=== PATIENT | female | born 1995 | race Caucasian/White ===

== ENCOUNTER 2022-04-02 16:57 | Inpatient (IN) ==
[2022-04-02] MEDS ORDERED: LACTATED RINGER'S 1,000 ML IV PRN (17:10)
[2022-04-02] MEDS ORDERED: OXYTOCIN 30 UNITS/500 ML BAG IV PRN ×2 (17:10→18:56)
--- NOTE | 2022-04-02 17:13 | History & Physical Report ---
Date of Service April 02, 2022 Assessment & Plan (1) Normal labor: Plan: 26yo at 39.6 weeks GA. Active labor. Presents from planned home 1. Fetus: Cat 1 2. Labor: Complete, +2. Strong urge to push. 3. Vitals: Stable 4. GBS negative (2) Meconium in amniotic fluid: History of Present Illness Primary Care Provider: NO PCP 26yo at 39.6 weeks GA. 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 Patient had a planned home but presented due to thick meconium and HR decels. Patient had a couple clinic visits in early prior to transfering care for a planned home . complicated by hypothyroid. OB Labs: Blood Type A Positive 08/27/21 Antibody Screen NEGATIVE 08/27/21 Hemoglobin 11.6 g/dL (12.0-16.0) L 08/27/21 Hematocrit 34.4 % (37-47) L 08/27/21 Mean Corpuscular Volume 90.8 fL (80-100) 08/27/21 Platelet Count 195 K/uL (130-400) 08/27/21 Rubella IgG Antibody Immune (Immune) 08/27/21 Rapid Plasma Reagin Nonreactive (Nonreactive) 08/27/21 Hepatitis B Surface Antigen Neg (Neg) 08/27/21 HIV (1&2) Ab and P24 Ag, 4th Gener Neg (Neg) 08/27/21 OB Optional Labs: Chlamydia trachomatis RNA NOT DETECTED (NOT DETECTED) 08/27/21 Neisseria gonorrhoeae RNA NOT DETECTED (NOT DETECTED) 08/27/21 Thyroid Stimulating Hormone (TSH) 2.160 uIu/ml (0.300-4.500) 08/27/21 Labs Reviewed: declines cf/sma--akh Allergies Allergy/AdvReac Type Severity Reaction Status Date / Time No Known Allergies Allergy Verified 04/02/22 16:58 Home Medications Medication Instructions Recorded Confirmed Type levothyroxine 50 mcg tablet 50 mcg PO DAILY 08/20/21 04/02/22 History prenat.vits,crescencio,gtw-hfex-wevpm 1 tab PO DAILY 08/20/21 04/02/22 History Patient History Medical History (Updated 04/02/22 @ 17:30 by Teja Phillips MD) Varicella vaccination Surgical History (Updated 08/20/21 @ 13:40 by Kathleen Gardner) No history of previous surgery Family History (Updated 08/20/21 @ 13:41 by Kathleen Gardner) Other Adopted Unknown family medical history Social History (Updated 08/20/21 @ 13:29 by Kathleen Gardner) Smoking Status: Never smoker Hx Alcohol Use: No Hx Substance Use: No Preferred Language: Grenadian Communication Ability: Effective Civil Preparedness Coordinator Required: No Beliefs That Will Affect Care: None marital status: marital status details: Demetrio Lange ([phone] Current Living Situation: Spouse Current Living Situation Comment: lives with spouse, no pets current occupational status: employed current occupation: [employer] Other Information That Helps Us Care for You: No Assistive Devices: None Physical Exam Genitourinary: OB Exam Abdomen: + vertex Manual OB Exam: + cervical dilation 10 cm, + cervical effacement 100% and + station + 2 OB Exam Monitor Tracing: + external FHT monitor used, + external uterine monitor used, + category I and + normal FHT variability; no early decelerations present, no late decelerations present and no variable decelerations Coding Level of Care Code None Diagnoses Normal labor O80; Z37.9 Meconium in amniotic fluid P96.83
[2022-04-02 17:38] LABS: Hematocrit (blood only) 38.2 % (37-47); Hemoglobin 12.9 g/dL (12.0-16.0); Mean Corpuscular Hemoglobin 32.3 pg (25-34); Mean Corpuscular Hgb Conc 33.8 g/dL (32-36); Mean Corpuscular Volume 95.5 fL (80-100); Mean Platelet Volume 12.1 fL (7.4-10.4); Platelet Count 175 K/uL (130-400); RDW Coefficient of Variation 13.2 % (11.5-14.5); RDW Standard Deviation 45.9 fL (36.4-46.3); White Blood Count 14.22 K/uL (4.8-10.8)
[2022-04-02] MEDS ORDERED: ERYTHROMYCIN OP OINT 1 GM PKT ONE (18:00)
[2022-04-02] MEDS ORDERED: LIDOCAINE 1% MPF 5 ML VIAL ONE ×2 (18:36→18:40)
[2022-04-02] MEDS ORDERED: BENZOCAINE 20% AER SPR 82.5 GM CAN EXT PRN (18:56)
[2022-04-02] MEDS ORDERED: bisacodyL 10 MG SUPP PR PRN (18:56)
[2022-04-02] MEDS ORDERED: DIPHTHERIA/TETANUS/PERTUSSIS 0.5 ML SYR/VIAL IM ONE (18:56)
[2022-04-02] MEDS ORDERED: HYDROCORTISONE ACETATE 25 MG SUPP PR PRN (18:56)
[2022-04-02] MEDS: IBUPROFEN 600 MG TAB PO PRN ×2 (19:12→23:51)
--- NOTE | 2022-04-02 19:35 | Delivery Summary ---
DATE OF SERVICE: 04/02/2022 PROCEDURE: Normal spontaneous vaginal delivery with bilateral labial laceration repairs. SURGEON: Teja Phillips MD. PREOPERATIVE DIAGNOSES: 1. Single intrauterine at 39 weeks 6 days gestational age. 2. Active labor. 3. Planned home , presented with decels and meconium fluid. 4. Hypothyroidism. POSTOPERATIVE DIAGNOSES: 1. Single intrauterine at 39 weeks 6 days gestational age. 2. Active labor. 3. Planned home , presented with decels and meconium fluid. 4. Hypothyroidism. 5. Status post procedure. ESTIMATED BLOOD LOSS: 300 mL DRAINS: None. FLUIDS: Continuous lactated Ringer. URINE OUTPUT: Per Vu catheter. COMPLICATIONS: None. FINDINGS: Viable male with weight and Apgars pending. INDICATIONS: The patient is a 26-year-old G1, P0 at 39 weeks 6 days gestational age, presented in ac tive labor with planned home delivery. 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 At initi al evaluation, the patient was noted to be completely dilated, 100% effaced, positive 2 station with a strong urge to push. After the patient received an IV and the patient began to push and pushed to achieve delivery. DESCRIPTION OF PROCEDURE: The patient progressed to 10 cm dilated, 100% effaced, positive 2 station, pushed over intact perineum without anesthesia and delivered a viable male with weight and Ap gars as noted above. Head of the delivered in JOSE MANUEL position, restituted to left transverse. No nuchal cord was noted. Body and shoulders quickly followed. was noted to be vigorous arslan n after delivery and delayed cord clamping was initiated. The patient desired prolonged delayed cord clamping and the patient was noted to have minimal bleeding, so it was allowed for the patient to owens ve as long as she needed for delaying the cord clamping. After the patient desired cord clamp, the co rd was then double clamped and cut. remained on maternal abdomen, still noted to be vigorous . Cord blood was attempted to be collected, although minimum was collected due to the prolonged natu re of the cord clamping. The placenta then delivered spontaneously with gentle cord traction and not ed to have 3-vessel cord. On inspection of the perineum, vagina, and cervix, there was noted to be j ust bilateral labial lacerations which were repaired with 3-0 Vicryl in an interrupted stitch. A 10 mL of lidocaine were distributed throughout the lacerations for effect. Needle, sponge, and in strument counts were correct at the completion of the case. Both mother and were stable in t he immediate post-delivery period. Job ID: [id number]
[2022-04-02] MEDS: ACETAMINOPHEN 325 MG TAB PO PRN (20:31)
[2022-04-02] MEDS ORDERED: ONDANSETRON INJ 2 MG/ML 2 ML VIAL IV PRN (21:17)
[2022-04-02] MEDS: DOCUSATE SODIUM 100 MG CAP PO SCH (22:58)
--- NOTE | 2022-04-03 07:30 | Obstetrical Progress Note ---
Date of Service April 03, 2022 Assessment & Plan (1) Encounter for care and examination after delivery: 26yo G1 day 1 s/p doing well. Routine care Subjective Ambulation: ambulating normally Voiding: no voiding problems Passing Gas:: Yes Diet Tolerance:: regular diet Lochia:: Moderate Feeding Type:: breast feeding Physical Exam Gastrointestinal (Abdomen) Inspection/Auscultation: abdomen normal to inspection; abdomen not distended Percussion/Palpation: abdomen soft; abdomen nontender, no guarding and abdomen not rigid Genitourinary OB Exam Abdomen: + fundal height Fundus: + firm and + relation to umbilicus (Below); not tender or not boggy Results & Data ([facility]) Vital Signs (Past 12 Hours) Vital Signs Temp Pulse Pulse Resp BP BP Pulse Ox 04/03/22 00:00 36.6 C 86 16 94/56 L 97 04/02/22 22:00 36.8 C 100 H 16 98/60 L 97 04/02/22 20:48 36.7 C 76 16 97/57 L 04/02/22 20:33 81 92/55 L 04/02/22 20:18 82 16 96/55 L 04/02/22 20:03 70 93/54 L 04/02/22 19:48 75 16 98/55 L 04/02/22 19:33 84 16 106/59 L
[2022-04-03] MEDS: DOCUSATE SODIUM 100 MG CAP PO SCH ×2 (07:46→21:25)
[2022-04-03] MEDS: PRENATAL VITAMIN 1 TAB PO SCH (07:46)
[2022-04-03] MEDS: FERROUS SULFATE 325 MG TAB PO SCH (07:46)
[2022-04-03] MEDS: LEVOTHYROXINE SODIUM 50 MCG TABLET PO SCH (08:04)
[2022-04-03] MEDS: IBUPROFEN 600 MG TAB PO PRN ×3 (08:05→21:25)
[2022-04-03] MEDS: ACETAMINOPHEN 325 MG TAB PO PRN ×2 (12:16→19:27)
[2022-04-03] MEDS ORDERED: bisacodyL 5 MG TABEC PO SCH (20:00)
[2022-04-04] MEDS: ACETAMINOPHEN 325 MG TAB PO PRN ×2 (01:03→08:34)
[2022-04-04] MEDS: IBUPROFEN 600 MG TAB PO PRN ×4 (01:38→17:34)
--- NOTE | 2022-04-04 07:19 | Obstetrical Progress Note ---
Date of Service April 04, 2022 Assessment & Plan (1) Encounter for care and examination after delivery: On day 2 she is doing well ambulating well no extremity pain minimal bleeding meets discharge criteria will discharge home Subjective Ambulation: ambulating normally Voiding: no voiding problems Passing Gas:: Yes Diet Tolerance:: regular diet Lochia:: Small Feeding Type:: breast feeding Results & Data ([facility]) Vital Signs (Past 12 Hours) Vital Signs Temp Pulse Resp BP Pulse Ox 04/04/22 00:36 98.6 F 97 H 16 92/54 L 98
[2022-04-04] MEDS: LEVOTHYROXINE SODIUM 50 MCG TABLET PO SCH (07:54)
[2022-04-04] MEDS: DOCUSATE SODIUM 100 MG CAP PO SCH (08:35)
[2022-04-04] MEDS: FERROUS SULFATE 325 MG TAB PO SCH (08:35)
[2022-04-04] MEDS: PRENATAL VITAMIN 1 TAB PO SCH (08:35)
--- NOTE | 2022-04-04 13:22 | Communication Note ---
Date of Service: April 04, 2022 Patient seen and examined with Erin Cardenas RN. Patient was c/o 7/10 pain in her tailbone and lower back / spine area while sitting to feed this morning. Pain was severe enough to result in shaking and tachycardia. Patient also mentioned chest pressure and SOB, as well as noting a h/o anxiety which has historically felt similar to the current episode. Vitals were noted to include sats of 99-100% on RA, pulse reported by SUZETTE Cardenas to be a max of 127 when sitting upright at max pain this morning - but currently in 80s while resting on her side, which relieves the pain. BP 93/60 which is c/w this patient's typical baseline readings. Exam: R lateral decub position. NAD. Redness of face c/w recent crying. Cor: RRR, holosystolic mild murmur, Lungs CTAB all quadrants. Abd soft nontender, fundus @ u. Pelvic declined by patient who describes normal labial size without swelling or ecchymosis and SUZETTE Cardenas also states that vulvar exam was "looking really good" this morning. She is exquisitely TTP over midline of sacrum, tearful and pulls away with attempt to palpate coccyx at top of gluteal crease. A/P: 1) Likely coccyx fx during delivery. Patient relates that she had "back labor" with her contractions and severe pain in the tailbone area during pushing and , which were very rapid, and this is her first baby so she didn't know what was normal. It has been better at times when she's side-lying, and very severe at times when she's sitting, ever since. 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 2) Anxiety vs DVT/PE vs other. Patient has no findings of concern on heart/lung exam, no swelling in either leg, no Dre's or calf cramps, has been ambulating, and has excellent O2 sats. She has a h/o anxiety. Overall most likely is that this was anxiety attack which patient feels has now resolved. Offered her expectant management with more time here on L&D, medication such as hydroxyzine for sedation effect (benzo not recommended as first line d/t at this time), or imaging to include US/CT to rule out clot. She feels that since her symptoms have resolved she'd like to just take a percocet for the tailbone pain and see how things go without any further intervention at this time.
[2022-04-04] MEDS: oxyCODONE/ACETAMINOPHEN 5mg/325mg TAB PO PRN ×2 (13:26→17:33)
== END 2022-04-04 19:25 | disposition home or self-care (01) | DRG 807 ==
LOC: OPB 16:57 → 4S1 16:59 → 4E2 21:33